=== PATIENT | female | born 1975 | race Hispanic/Latino ===

== ENCOUNTER → 2019-12-19 | Outpatient (CLI) | payer OTHER | END | disposition home or self-care (01) | LOC: OIH 14:16 | PROVIDERS: ATTEND Internal Medicine | DX: M19.072 Primary osteoarthritis, left ankle and foot (principal); M19.071 Primary osteoarthritis, right ankle and foot; M20.12 Hallux valgus (acquired), left foot; M20.11 Hallux valgus (acquired), right foot; M06.09 Rheumatoid arthritis without rheumatoid factor, multiple sites | CPT/HCPCS: 73620 ==